=== PATIENT | male | born 2000 | race Caucasian/White ===

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

== ENCOUNTER 2020-10-24 10:13 | Emergency (ER) | payer BC ==
[~2020-10-24] VITALS: Ht 190.5 cm; Wt 90.9 kg
--- NOTE | 2020-10-24 10:20 | NUR ---
"AFIB, COVID TEST PENDING, FEVERS, COUGH, VOMITING, SOB" HX:AFIB (FLECAINIDE) and hyperthyroid VSS (afebrile, nsr in the 80-90s), ECG in triage, placed on room worker, piv placed from which labs were drawn Updated on estimated poc
[2020-10-24 11:20] LABS: BASOPHILS % (AUTO) 0 % (0-1); EOSINOPHILS % (AUTO) 2 % (1-7); LYMPHOCYTES % (AUTO) 20 % (22-44); MEAN CORPUSCULAR HEMOGLOBIN 29.5 pg (27.5-34.5); MEAN CORPUSCULAR HGB CONC 35.1 g/dL (33.2-36.2); MONOCYTES % (AUTO) 11 % (2-9); NEUTROPHILS % (AUTO) 68 % (42-75); PLATELET COUNT 329 x10^3/uL (130-400); RED CELL DISTRIBUTION WIDTH 13.2 % (9.4-14.8)
[2020-10-24 11:25] LABS: MD NO
[2020-10-24 11:27] LABS: ALANINE AMINOTRANSFERASE 100 U/L (12-78); ALBUMIN 3.5 g/dL (3.4-5.0); ANION GAP 6 mmol/L (5-15); CALCIUM 9.4 mg/dL (8.5-10.1); CHLORIDE 106 mmol/L (98-107); CREATININE 0.98 mg/dL (0.7-1.3)
[2020-10-24 11:38] LABS: ALKALINE PHOSPHATASE 114 U/L (45-117); BILIRUBIN,TOTAL 0.9 mg/dL (0.2-1.0); TOTAL PROTEIN 8.5 g/dL (6.4-8.2)
[2020-10-24 11:51] LABS: FREE T4 (FREE THYROXINE) 1.54 ng/dL (0.76-1.46)
[2020-10-24] MEDS ORDERED: ASPIRIN 81 MG TABLET CHEW PO ONE (12:00)
[2020-10-24 12:08] VITALS: BP 120/67
--- NOTE | 2020-10-24 12:15 | NUR ---
PRE-DISCHARGE THOROUGHLY EDUCATED PATIENT ON QUARANTINE, WATCH SXS TO WATCH FOR (UNRELENTING NAUSEA, INCREASING SOB ETC)
[2020-10-24] MEDS ORDERED: ASPIRIN 81 MG TABLET CHEW ONE (12:19)
== END 2020-10-24 12:43 | disposition home or self-care (01) ==
LOC: ED 11:20
DX: U07.1 COVID-19 (principal); J12.9 Viral pneumonia, unspecified; I48.0 Paroxysmal atrial fibrillation; E05.90 Thyrotoxicosis, unspecified without thyrotoxic crisis or storm
CPT/HCPCS: 36415; 71045; 80053; 83690; 83735; 84439; 84443; 85025; 93005; 99285